=== PATIENT | female | born 1995 | race Hispanic/Latino ===

== ENCOUNTER 2022-01-26 11:38 | Emergency (ER) | payer MEDICARE, OTHER ==
[~2022-01-26] VITALS: Ht 157.5 cm; Wt 68.0 kg
== END 2022-01-26 12:15 | disposition home or self-care (01) ==
LOC: ER 11:50
DX: S00.83XA Contusion of other part of head, initial encounter (principal); R51.9 Headache, unspecified; W01.198A Fall on same level from slipping, tripping and stumbling with subsequent striking against other object, initial encounter; Y92.89 Other specified places as the place of occurrence of the external cause
CPT/HCPCS: 99283